=== PATIENT | female | born 1945 | race Caucasian/White ===

== ENCOUNTER 2017-08-27 10:06 | Emergency (ER) | payer OTHER ==
[2017-08-27 10:13] VITALS: BP 104/67; PULSE 115; TEMP 99.2; BMI 17.7
--- NOTE | 2017-08-27 10:52 | PDOC ---
History of Present Illness - General Chief Complaint: Cold Symptoms Stated Complaint: ABD PAIN, SWOLLEN LEGS Time Seen by Provider: 08/27/17 10:44 History Source: Patient Exam Limitations: No Limitations - History of Present Illness Initial Comments: 08/27/17 10:51 Best Contact: PCP: Leoncio name Pmhx: N/A Pshx: TVH Allergies: PCN 72-year-old female presents to the ER complaining of intermittent dry cough with subjective fever and chills but denies nausea/vomiting, facial pain, headache, dizziness, lightheadedness, nasal congestion, rhinorrhea, earaches, sore throat, difficulty swallowing, chest pain, shortness of breath, neck pain/ stiffness, back pains, abdominal pains, flank pains, urinary symptoms, extremity numbness or tingling sensation. Patient states she's been walking long distances for the past 2 days causing her feet ache. The pain is alleviated at rest. Past History - Past Medical History Allergies/Adverse Reactions: Allergies Allergy/AdvReac Type Severity Reaction Status Date / Time Penicillins Allergy Intermediate Rash Verified 08/27/17 10:07 Home Medications: Ambulatory Orders No Home Medications 0 dose .ROUTE UTDICT 07/02/13 Azithromycin [Zithromax -] 250 mg PO UTDICT #6 tab 08/27/17 Anemia: No Asthma: No Cancer: No Cardiac Disorders: No CVA: No COPD: No CHF: No Dementia: No Diabetes: No GI Disorders: Yes (gastritis) Disorders: No HTN: No Hypercholesterolemia: No Liver Disease: No Seizures: No Thyroid Disease: No - Surgical History Abdominal Surgery: No Appendectomy: No Cardiac Surgery: No Cholecystectomy: No Lung Surgery: No Neurologic Surgery: No Orthopedic Surgery: No - Suicide/Smoking/Psychosocial Hx Smoking History: Never smoked Have you smoked in the past 12 months: No Information on smoking cessation initiated: No Hx Alcohol Use: Yes (OCCASIONALLY) Drug/Substance Use Hx: No Substance Use Type: Alcohol Hx Substance Use Treatment: No Review of Systems - Review of Systems Able to Perform ROS?: Yes Comments:: 08/27/17 11:18 CONSTITUTIONAL: +Subjective fever/chills Absent: diaphoresis, generalized weakness, malaise, loss of appetite HEENT: Absent: rhinorrhea, nasal congestion, throat pain, throat swelling, difficulty swallowing, mouth swelling, ear pain, eye pain, visual Changes CARDIOVASCULAR: Absent: chest pain, loss of consciousness, palpitations, irregular heart rate, peripheral edema RESPIRATORY: +Cough Absent: shortness of breath, dyspnea with exertion, orthopnea, wheezing, stridor, hemoptysis GASTROINTESTINAL: Absent: abdominal pain, abdominal distension, nausea, vomiting, diarrhea, constipation, melena, hematochezia GENITOURINARY: Absent: dysuria, frequency, urgency, hesitancy, hematuria, flank pain, genital pain MUSCULOSKELETAL: Absent: myalgia, arthralgia, joint swelling SKIN: Absent: rash, itching, pallor HEMATOLOGIC/IMMUNOLOGIC: Absent: easy bleeding, easy bruising, lymphadenopathy, frequent infections ENDOCRINE: Absent: unexplained weight gain, unexplained weight loss, heat intolerance, cold intolerance Is the patient limited Burmese proficient: No *Physical Exam - Vital Signs Last Vital Signs Temp Pulse Resp BP Pulse Ox 99.2 F 115 H 18 104/67 100 08/27/17 10:09 08/27/17 10:09 08/27/17 10:09 08/27/17 10:09 08/27/17 10:09 - Physical Exam Comments: 08/27/17 11:19 GENERAL: Well developed, well nourished. Awake and alert. No acute distress. HEENT: Normocephalic, atraumatic. PERRLA, EOMI. No conjunctival pallor. Sclera are non- icteric. Moist mucous membranes. Oropharynx is clear. NECK: Supple. Full ROM. No JVD. Carotid pulses 2+ and symmetric, without bruits. No thyromegaly. No lymphadenopathy. CARDIOVASCULAR: Regular rate and rhythm. No murmurs, rubs, or gallops. Distal pulses are 2+ and symmetric. PULMONARY: No evidence of respiratory distress. Lungs clear to auscultation bilaterally. No wheezing, rales or rhonchi. ABDOMINAL: Soft. Non-tender. Non-distended. No rebound or guarding. No organomegaly. Normoactive bowel sounds. MUSCULOSKELETAL Normal range of motion at all joints. No bony deformities or tenderness. No CVA tenderness. EXTREMITIES: No cyanosis. No clubbing. No edema. No calf tenderness. SKIN: Warm and dry. Normal capillary refill. No rashes. No jaundice. Moderate Sedation - Procedure Monitoring Vital Signs: Vital Signs Temp Pulse Resp BP Pulse Ox 99.2 F 115 H 18 104/67 100 08/27/17 10:09 08/27/17 10:09 08/27/17 10:09 08/27/17 10:09 08/27/17 10:09 *DC/Admit/Observation/Transfer Diagnosis at time of Disposition: Acute bronchitis Qualifiers: Bronchitis organism: unspecified organism Qualified Code(s): J20.9 - Acute bronchitis, unspecified - Discharge Dispostion Disposition: HOME Condition at time of disposition: Stable Decision to Admit order: No - Prescriptions Prescriptions: Azithromycin [Zithromax -] 250 mg PO UTDICT #6 tab - Referrals Referrals: Juan Fierro MD [Staff Physician] - - Patient Instructions Printed Discharge Instructions: DI for Acute Bronchitis Additional Instructions: Rest [id number] supportive care Zithromax as prescribed Return back to the emergency department for severe/persistent or worsening symptoms - Post Discharge Activity
== END 2017-08-27 10:58 | disposition home or self-care (01) ==
LOC: JERFT 10:06
DX: J20.9 Acute bronchitis, unspecified (principal)
CPT/HCPCS: 99281-25

== ENCOUNTER 2019-11-09 05:03 | Day surgery (SDC) | payer OTHER ==
[2019-11-06 18:39] VITALS: BMI 16.1
[2019-11-09] MEDS ORDERED: CARVEDILOL 25 MG TABLET (FP) PO ONE (14:15)
[2019-11-09] MEDS ORDERED: ACETAMINOPHEN 325 MG TABLET (FP) ONE (15:07)
[2019-11-09 15:16] VITALS: TEMP 97.8
[2019-11-09 16:27] VITALS: BP 162/92; PULSE 70
== END 2019-11-09 16:28 | disposition home or self-care (01) ==
LOC: JASU-SURG 05:03
PROVIDERS: ATTEND Surgery
PROC: 03180ZF Bypass Left Brachial Artery to Lower Arm Vein, Open Approach (ICD-10-PCS; principal; 2019-11-09)
DX: N18.6 End stage renal disease (principal); Z53.09 Procedure and treatment not carried out because of other contraindication
CPT/HCPCS: 36415; 84132

== ENCOUNTER 2021-01-04 04:08 | Day surgery (SDC) | payer OTHER ==
[2021-01-03 16:31] VITALS: BMI 15.7
[2021-01-04] MEDS ORDERED: PAPAVERINE HCL 30 MG/1 ML 10 ML VIAL NR ONE (09:37)
[2021-01-04] MEDS ORDERED: HEPARIN NA (PORCINE) 5,000 UNITS/ML 1ML VIAL ONE (09:37)
[2021-01-04] MEDS ORDERED: LIDOCAINE HCL 1%, 10 MG/ML (20ML VIAL) ONE (09:47)
[2021-01-04] MEDS ORDERED: POVIDONE-IODINE OINTMENT 10% - 28.4 GM TUBE ONE (09:48)
[2021-01-04] MEDS ORDERED: MIDAZOLAM HCL 2 MG/2 ML SINGLE DOSE VIAL ONE (10:30)
[2021-01-04] MEDS ORDERED: LIDOCAINE HCL 1%, 10 MG/ML (20ML VIAL) SQ ONE (10:42)
[2021-01-04] MEDS ORDERED: ONDANSETRON 4 MG/2 ML VIAL ONE (10:43)
[2021-01-04] MEDS ORDERED: HEPARIN NA (PORCINE) 5,000 UNITS/ML 1ML VIAL SQ ONE (10:51)
[2021-01-04] MEDS ORDERED: POVIDONE-IODINE OINTMENT 10% - 28.4 GM TUBE TP ONE (11:34)
[2021-01-04] MEDS ORDERED: oxyCODONE HCL 5 MG TABLET PO PRN (11:45)
[2021-01-04] MEDS ORDERED: ONDANSETRON 4 MG/2 ML VIAL IVPUSH PRN (12:19)
[2021-01-04 13:26] VITALS: TEMP 96.4
[2021-01-04 14:18] VITALS: BP 134/67; PULSE 66
== END 2021-01-04 14:40 | disposition home or self-care (01) ==
LOC: JASU-SURG 04:08
PROVIDERS: ATTEND Surgery
PROC: 03180ZD Bypass Left Brachial Artery to Upper Arm Vein, Open Approach (ICD-10-PCS; principal; 2021-01-04 10:00)
DX: I12.0 Hypertensive chronic kidney disease with stage 5 chronic kidney disease or end stage renal disease (principal); N18.6 End stage renal disease; Z99.2 Dependence on renal dialysis
CPT/HCPCS: 36415; 84132; 94760; J1644

== ENCOUNTER 2021-03-27 04:30 | Day surgery (SDC) | payer OTHER ==
[2021-02-28 12:29] VITALS: BMI 15.7
[2021-03-27] MEDS ORDERED: LIDOCAINE HCL 1%, 10 MG/ML (20ML VIAL) ONE (10:50)
[2021-03-27] MEDS ORDERED: PAPAVERINE HCL 30 MG/1 ML 10 ML VIAL NR ONE (10:50)
[2021-03-27] MEDS ORDERED: HEPARIN NA (PORCINE) 5,000 UNITS/ML 1ML VIAL ONE (10:50)
[2021-03-27] MEDS ORDERED: POVIDONE-IODINE OINTMENT 10% - 28.4 GM TUBE ONE (11:07)
[2021-03-27] MEDS ORDERED: LIDOCAINE HCL 2% (20ML MULTI-DOSE VIAL) ONE (11:45)
[2021-03-27] MEDS ORDERED: MIDAZOLAM HCL 2 MG/2 ML SINGLE DOSE VIAL ONE ×2 (11:50)
[2021-03-27] MEDS ORDERED: LIDOCAINE HCL 1%, 10 MG/ML (20ML VIAL) NR ONE ×2 (12:40→13:30)
[2021-03-27] MEDS ORDERED: POVIDONE-IODINE OINTMENT 10% - 28.4 GM TUBE TP ONE ×2 (12:41→13:30)
[2021-03-27] MEDS ORDERED: CLINDAMYCIN 300 MG PREMIX BAG IVPB ONE (13:19)
[2021-03-27] MEDS ORDERED: KETAMINE HCL 200 MG/20 ML VIAL ONE (14:11)
[2021-03-27] MEDS ORDERED: GLYCOPYRROLATE 0.2 MG/1 ML VIAL ONE (14:11)
[2021-03-27] MEDS ORDERED: CLINDAMYCIN PHOSPHATE 600 MG/4 ML VIAL ONE (14:26)
[2021-03-27] MEDS ORDERED: ONDANSETRON 4 MG/2 ML VIAL IVPUSH PRN (14:45)
[2021-03-27 17:36] VITALS: BP 152/78; PULSE 88; TEMP 97.7
== END 2021-03-27 17:17 | disposition home or self-care (01) ==
LOC: JASU-SURG 04:30
PROVIDERS: ATTEND Surgery
PROC: 05WY03Z Revision of Infusion Device in Upper Vein, Open Approach (ICD-10-PCS; principal; 2021-03-27 11:00)
DX: I12.0 Hypertensive chronic kidney disease with stage 5 chronic kidney disease or end stage renal disease (principal); N18.6 End stage renal disease; Z99.2 Dependence on renal dialysis
CPT/HCPCS: 36415; 82962; 84132; 94760; J1644

== ENCOUNTER 2021-08-21 13:18 | Inpatient (IN) | payer OTHER ==
[2021-08-21] MEDS ORDERED: DEXAMETHASONE SOD PHOSPHATE 10 MG/1 ML VIAL IVPUSH ONE (15:14)
[2021-08-21] MEDS ORDERED: ALBUTEROL SO4 2.5/IPRATROPIUM 0.5 INH SOL 3 ML VIAL.NEB. NEB ONE ×2 (15:17→15:51)
[2021-08-21] MEDS ORDERED: DEXAMETHASONE SOD PHOSPHATE 10 MG/1 ML VIAL ONE (15:51)
[2021-08-21] MEDS ORDERED: REMDESIVIR 200 MG in SODIUM CHLORIDE 250 ML IVPB ONE (16:14)
[2021-08-21 16:44] LABS: VENOUS BASE EXCESS 5.4 mmol/L (-2-2); VENOUS O2 SATURATION 22.2 % (70-80); VENOUS PCO2 62.5 mmHg (38-52); VENOUS PH 7.345 (7.310-7.410)
[2021-08-21 16:57] LABS: BASO % 0.9 % (0-2.0); EOS % 8.9 % (0-4.5); HEMATOCRIT 44.6 % (32.4-45.2); HEMOGLOBIN 14.7 GM/dL (10.7-15.3); LYMPH % 13.5 % (8-40); MCH 33.6 pg (25.7-33.7); MEAN CELL VOLUME 101.7 fl (80-96); MONO % 5.6 % (3.8-10.2); NEUT % 71.1 % (42.8-82.8); PLATELET COUNT 220 10^3/uL (134-434); RBC 4.38 M/mm3 (3.60-5.2); RDW 15.5 % (11.6-15.6); WHITE BLOOD COUNT 9.4 K/mm3 (4.0-10.0)
[2021-08-21 17:26] LABS: CALCIUM 9.2 mg/dL (8.5-10.1)
[2021-08-21 17:27] LABS: ALBUMIN 4.1 g/dl (3.4-5.0); BLOOD UREA NITROGEN 21.6 mg/dL (7-18)
[2021-08-21 17:30] LABS: BILIRUBIN,DIRECT 0.1 mg/dL (0.0-0.2)
[2021-08-21 17:31] LABS: BILIRUBIN,TOTAL 0.5 mg/dL (0.2-1); CREATININE 5.3 mg/dL (0.55-1.3); INR 0.99 (0.83-1.09); PROTHROMBIN TIME (PATIENT) 11.4 SEC (9.7-13.0); TOT PROT 8.8 g/dl (6.4-8.2)
[2021-08-21 17:33] LABS: ACTIVATED PTT 39.2 SECONDS (25.2-36.5)
[2021-08-21] MEDS ORDERED: ALBUTEROL SO4 HFA INHALER IH PRN (21:06)
[2021-08-21] MEDS ORDERED: CARVEDILOL 12.5 MG TABLET (FP) ONE (22:54)
[2021-08-21] MEDS ORDERED: ATORVASTATIN CA 10 MG TABLET (FP) ONE (22:54)
[2021-08-21] MEDS ORDERED: HEPARIN NA (PORCINE) 5,000 UNITS/ML 1ML VIAL ONE (22:55)
[2021-08-21] MEDS ORDERED: ASCORBIC ACID 500 MG TABLET (FP) ONE (22:55)
[2021-08-21] MEDS: ASCORBIC ACID 500 MG TABLET (FP) PO SCH (23:15)
[2021-08-21] MEDS: CARVEDILOL 25 MG TABLET (FP) PO SCH (23:15)
[2021-08-21] MEDS: ATORVASTATIN CA 10 MG TABLET (FP) PO SCH (23:15)
[2021-08-21] MEDS: BUDESONIDE/FORMETEROL FUMARATE 80/4.5 mcg INHALER IH SCH (23:15)
[2021-08-21] MEDS: HEPARIN NA (PORCINE) 5,000 UNITS/ML 1ML VIAL SQ SCH (23:15)
[2021-08-22] MEDS ORDERED: HEPARIN NA (PORCINE) 5,000 UNITS/ML 1ML VIAL ONE ×2 (06:09→14:38)
[2021-08-22] MEDS: HEPARIN NA (PORCINE) 5,000 UNITS/ML 1ML VIAL SQ SCH ×3 (06:16→22:30)
[2021-08-22 07:34] LABS: BASO % 0.4 % (0-2.0); EOS % 0.1 % (0-4.5); HEMOGLOBIN 12.2 GM/dL (10.7-15.3); LYMPH % 19.5 % (8-40); MCH 32.8 pg (25.7-33.7); MEAN CELL VOLUME 102.6 fl (80-96); MEAN PLT VOLUME 8.4 fl (7.5-11.1); MONO % 7.8 % (3.8-10.2); NEUT % 72.2 % (42.8-82.8); PLATELET COUNT 190 10^3/uL (134-434); RBC 3.71 M/mm3 (3.60-5.2); RDW 15.1 % (11.6-15.6); WHITE BLOOD COUNT 6.6 K/mm3 (4.0-10.0)
[2021-08-22 09:19] LABS: CALCIUM 7.9 mg/dL (8.5-10.1)
[2021-08-22 09:21] LABS: BLOOD UREA NITROGEN 41.2 mg/dL (7-18); MAGNESIUM 2.5 mg/dL (1.8-2.4)
[2021-08-22 09:24] LABS: CREATININE 7.3 mg/dL (0.55-1.3)
[2021-08-22 09:25] LABS: BILIRUBIN,TOTAL 0.3 mg/dL (0.2-1)
[2021-08-22] MEDS ORDERED: CARVEDILOL 12.5 MG TABLET (FP) ONE (09:32)
[2021-08-22] MEDS ORDERED: ZINC SULFATE 220 MG CAPSULE (FP) ONE (09:32)
[2021-08-22] MEDS ORDERED: amLODIPine BESYLATE 5 MG TABLET (FP) ONE (09:32)
[2021-08-22] MEDS ORDERED: CHOLECALCIFEROL (VIT D3) 1,000 UNIT (25 MCG) TABLET ONE (09:33)
[2021-08-22] MEDS ORDERED: ASCORBIC ACID 500 MG TABLET (FP) ONE (09:33)
[2021-08-22] MEDS ORDERED: MULTIVITAMINS (DAILY MVI) TABLET (FP) ONE (09:33)
[2021-08-22] MEDS ORDERED: DEXAMETHASONE SOD PHOSPHATE 10 MG/1 ML VIAL ONE (09:33)
[2021-08-22 09:34] LABS: ALBUMIN 3.2 g/dl (3.4-5.0)
[2021-08-22] MEDS: CHOLECALCIFEROL (VIT D3) 5000 UNITS (125 MCG) CAP PO SCH (10:00)
[2021-08-22] MEDS: amLODIPine BESYLATE 5 MG TABLET (FP) PO SCH (10:00)
[2021-08-22] MEDS: DEXAMETHASONE SOD PHOSPHATE 10 MG/1 ML VIAL IVPUSH SCH (10:00)
[2021-08-22] MEDS: BUDESONIDE/FORMETEROL FUMARATE 80/4.5 mcg INHALER IH SCH ×2 (10:00→22:30)
[2021-08-22] MEDS: CARVEDILOL 25 MG TABLET (FP) PO SCH ×2 (10:00→22:30)
[2021-08-22] MEDS: ZINC SULFATE 220 MG CAPSULE (FP) PO SCH (10:00)
[2021-08-22] MEDS: MULTIVITAMINS (DAILY MVI) TABLET (FP) PO SCH (10:00)
[2021-08-22] MEDS ORDERED: ZINC SULFATE 220 MG CAPSULE (FP) PO SCH (10:00)
[2021-08-22] MEDS: ASCORBIC ACID 500 MG TABLET (FP) PO SCH ×2 (10:00→22:30)
[2021-08-22] MEDS ORDERED: REMDESIVIR 200 MG in SODIUM CHLORIDE 250 ML IVPB ONE (14:00)
[2021-08-22] MEDS ORDERED: ALBUTEROL SO4 HFA INHALER IH ONE (14:38)
[2021-08-22] MEDS ORDERED: SODIUM CHLORIDE 250 ML IV PRN (14:43)
[2021-08-22] MEDS: ALBUTEROL SO4 HFA INHALER IH SCH ×3 (14:50→22:29)
[2021-08-22] MEDS: ATORVASTATIN CA 10 MG TABLET (FP) PO SCH (22:30)
[2021-08-23] MEDS: HEPARIN NA (PORCINE) 5,000 UNITS/ML 1ML VIAL SQ SCH ×3 (05:49→21:44)
[2021-08-23 08:42] LABS: BASO % 0.1 % (0-2.0); HEMATOCRIT 35.8 % (32.4-45.2); HEMOGLOBIN 11.7 GM/dL (10.7-15.3); LYMPH % 11.5 % (8-40); MCH 33.3 pg (25.7-33.7); MCHC 32.7 g/dl (32.0-36.0); MEAN CELL VOLUME 101.9 fl (80-96); MEAN PLT VOLUME 8.4 fl (7.5-11.1); MONO % 8.2 % (3.8-10.2); NEUT % 80.2 % (42.8-82.8); PLATELET COUNT 195 10^3/uL (134-434); RBC 3.51 M/mm3 (3.60-5.2); RDW 15.3 % (11.6-15.6); WHITE BLOOD COUNT 9.3 K/mm3 (4.0-10.0)
[2021-08-23 09:05] LABS: CHLORIDE 98 mmol/L (98-107); SODIUM 138 mmol/L (136-145)
[2021-08-23 09:13] LABS: ALBUMIN 3.3 g/dl (3.4-5.0); ANION GAP 14 MMOL/L (8-16); CO2 26 mmol/L (21-32); GLUCOSE,RANDOM 157 mg/dL (74-106); MAGNESIUM 2.6 mg/dL (1.8-2.4)
[2021-08-23 09:16] LABS: PHOSPHOROUS 7.8 mg/dL (2.5-4.9); SGOT/AST 18 U/L (15-37); SGPT/ALT 21 U/L (13-61)
[2021-08-23 09:18] LABS: BILIRUBIN,TOTAL 0.5 mg/dL (0.2-1); TOT PROT 6.8 g/dl (6.4-8.2)
[2021-08-23 09:19] LABS: ALK PHOS 48 U/L (45-117); LDH 175 U/L (84-246)
[2021-08-23 10:52] LABS: BLOOD UREA NITROGEN 72.3 mg/dL (7-18); CREATININE 9.2 mg/dL (0.55-1.3)
[2021-08-23] MEDS: amLODIPine BESYLATE 5 MG TABLET (FP) PO SCH (13:22)
[2021-08-23] MEDS: CARVEDILOL 25 MG TABLET (FP) PO SCH ×2 (13:23→21:44)
[2021-08-23] MEDS: ZINC SULFATE 220 MG CAPSULE (FP) PO SCH (13:24)
[2021-08-23] MEDS: DEXAMETHASONE SOD PHOSPHATE 10 MG/1 ML VIAL IVPUSH SCH (13:24)
[2021-08-23] MEDS: ASCORBIC ACID 500 MG TABLET (FP) PO SCH ×2 (13:24→21:45)
[2021-08-23] MEDS: ALBUTEROL SO4 HFA INHALER IH SCH ×4 (13:26→21:45)
[2021-08-23] MEDS: MULTIVITAMINS (DAILY MVI) TABLET (FP) PO SCH (13:26)
[2021-08-23] MEDS: BUDESONIDE/FORMETEROL FUMARATE 80/4.5 mcg INHALER IH SCH ×2 (13:26→21:45)
[2021-08-23] MEDS: CHOLECALCIFEROL (VIT D3) 5000 UNITS (125 MCG) CAP PO SCH (13:26)
[2021-08-23] MEDS: REMDESIVIR 100 MG in SODIUM CHLORIDE 250 ML IVPB SCH ×2 (15:54→16:04)
[2021-08-23] MEDS: ATORVASTATIN CA 10 MG TABLET (FP) PO SCH (21:45)
[2021-08-24] MEDS: HEPARIN NA (PORCINE) 5,000 UNITS/ML 1ML VIAL SQ SCH ×3 (05:34→21:26)
[2021-08-24 09:22] LABS: BASO % 0.2 % (0-2.0); HEMATOCRIT 39.8 % (32.4-45.2); HEMOGLOBIN 12.9 GM/dL (10.7-15.3); LYMPH % 15.6 % (8-40); MCH 33.2 pg (25.7-33.7); MCHC 32.4 g/dl (32.0-36.0); MEAN CELL VOLUME 102.4 fl (80-96); MEAN PLT VOLUME 8.1 fl (7.5-11.1); NEUT % 75.2 % (42.8-82.8); PLATELET COUNT 211 10^3/uL (134-434); RBC 3.89 M/mm3 (3.60-5.2); RDW 15.2 % (11.6-15.6); WHITE BLOOD COUNT 10.6 K/mm3 (4.0-10.0)
[2021-08-24 09:51] LABS: CALCIUM 8.1 mg/dL (8.5-10.1)
[2021-08-24 09:52] LABS: ALBUMIN 3.4 g/dl (3.4-5.0); BLOOD UREA NITROGEN 58.2 mg/dL (7-18); MAGNESIUM 2.5 mg/dL (1.8-2.4)
[2021-08-24 09:54] LABS: BILIRUBIN,TOTAL 0.3 mg/dL (0.2-1)
[2021-08-24 09:55] LABS: CREATININE 6.3 mg/dL (0.55-1.3); PHOSPHOROUS 6.4 mg/dL (2.5-4.9)
[2021-08-24] MEDS: ASCORBIC ACID 500 MG TABLET (FP) PO SCH ×2 (10:15→21:26)
[2021-08-24] MEDS: amLODIPine BESYLATE 5 MG TABLET (FP) PO SCH (10:15)
[2021-08-24] MEDS: CARVEDILOL 25 MG TABLET (FP) PO SCH ×2 (10:15→21:25)
[2021-08-24] MEDS: ZINC SULFATE 220 MG CAPSULE (FP) PO SCH (10:15)
[2021-08-24] MEDS: MULTIVITAMINS (DAILY MVI) TABLET (FP) PO SCH (10:16)
[2021-08-24] MEDS: DEXAMETHASONE SOD PHOSPHATE 10 MG/1 ML VIAL IVPUSH SCH (10:16)
[2021-08-24] MEDS: ALBUTEROL SO4 HFA INHALER IH SCH ×4 (10:18→21:26)
[2021-08-24] MEDS: BUDESONIDE/FORMETEROL FUMARATE 80/4.5 mcg INHALER IH SCH ×2 (10:18→21:26)
[2021-08-24] MEDS: CHOLECALCIFEROL (VIT D3) 5000 UNITS (125 MCG) CAP PO SCH (10:20)
[2021-08-24] MEDS: REMDESIVIR 100 MG in SODIUM CHLORIDE 250 ML IVPB SCH ×2 (13:41→13:46)
[2021-08-24] MEDS ORDERED: SODIUM CHLORIDE 250 ML IV PRN (15:23)
[2021-08-24] MEDS: CALCIUM ACETATE 667 MG CAPSULE (FP) PO SCH (17:29)
[2021-08-24] MEDS: DOXYCYCLINE HYCLATE 100 MG CAPSULE PO SCH (17:29)
[2021-08-24] MEDS: ATORVASTATIN CA 10 MG TABLET (FP) PO SCH (21:26)
[2021-08-25] MEDS: HEPARIN NA (PORCINE) 5,000 UNITS/ML 1ML VIAL SQ SCH ×3 (05:47→22:29)
[2021-08-25] MEDS: AMINO ACIDS/PROTEIN HYDROLYS 30 ML LIQUID.PKT PO SCH (08:45)
[2021-08-25] MEDS: CALCIUM ACETATE 667 MG CAPSULE (FP) PO SCH ×3 (08:45→17:13)
[2021-08-25 09:17] LABS: BASO % 0.3 % (0-2.0); EOS % 0.1 % (0-4.5); HEMOGLOBIN 12.4 GM/dL (10.7-15.3); LYMPH % 11.4 % (8-40); MCH 32.4 pg (25.7-33.7); MCHC 31.8 g/dl (32.0-36.0); MEAN PLT VOLUME 8.3 fl (7.5-11.1); MONO % 9.5 % (3.8-10.2); NEUT % 78.7 % (42.8-82.8); PLATELET COUNT 221 10^3/uL (134-434); RBC 3.82 M/mm3 (3.60-5.2); RDW 15.2 % (11.6-15.6); WHITE BLOOD COUNT 15.1 K/mm3 (4.0-10.0)
[2021-08-25] MEDS: CARVEDILOL 25 MG TABLET (FP) PO SCH ×2 (10:00→22:44)
[2021-08-25] MEDS: amLODIPine BESYLATE 5 MG TABLET (FP) PO SCH (10:01)
[2021-08-25 10:25] LABS: ALBUMIN 3.4 g/dl (3.4-5.0); ALK PHOS 41 U/L (45-117); ANION GAP 17 MMOL/L (8-16); BILIRUBIN,TOTAL 0.3 mg/dL (0.2-1); BLOOD UREA NITROGEN 109.9 mg/dL (7-18); CALCIUM 8.1 mg/dL (8.5-10.1); CHLORIDE 100 mmol/L (98-107); CO2 26 mmol/L (21-32); CREATININE 9.4 mg/dL (0.55-1.3); GLUCOSE,RANDOM 79 mg/dL (74-106); MAGNESIUM 2.6 mg/dL (1.8-2.4); PHOSPHOROUS 6.5 mg/dL (2.5-4.9); SGOT/AST 17 U/L (15-37); SGPT/ALT 20 U/L (13-61); SODIUM 143 mmol/L (136-145); TOT PROT 6.8 g/dl (6.4-8.2)
[2021-08-25] MEDS: ASCORBIC ACID 500 MG TABLET (FP) PO SCH ×2 (10:43→22:29)
[2021-08-25] MEDS: DOXYCYCLINE HYCLATE 100 MG CAPSULE PO SCH ×2 (10:43→17:14)
[2021-08-25] MEDS: MULTIVITAMINS (DAILY MVI) TABLET (FP) PO SCH (10:44)
[2021-08-25] MEDS: CHOLECALCIFEROL (VIT D3) 5000 UNITS (125 MCG) CAP PO SCH (10:44)
[2021-08-25] MEDS: DEXAMETHASONE SOD PHOSPHATE 10 MG/1 ML VIAL IVPUSH SCH (10:44)
[2021-08-25] MEDS: BUDESONIDE/FORMETEROL FUMARATE 80/4.5 mcg INHALER IH SCH ×2 (10:45→22:29)
[2021-08-25] MEDS: ALBUTEROL SO4 HFA INHALER IH SCH ×4 (10:45→22:30)
[2021-08-25] MEDS: REMDESIVIR 100 MG in SODIUM CHLORIDE 250 ML IVPB SCH (14:01)
[2021-08-25] MEDS: ATORVASTATIN CA 10 MG TABLET (FP) PO SCH (22:29)
[2021-08-26] MEDS: HEPARIN NA (PORCINE) 5,000 UNITS/ML 1ML VIAL SQ SCH ×3 (07:00→22:24)
[2021-08-26 09:43] LABS: BASO % 0.3 % (0-2.0); EOS % 0.3 % (0-4.5); HEMATOCRIT 36.7 % (32.4-45.2); LYMPH % 13.4 % (8-40); MCH 32.8 pg (25.7-33.7); MCHC 32.5 g/dl (32.0-36.0); MEAN CELL VOLUME 100.9 fl (80-96); MEAN PLT VOLUME 7.9 fl (7.5-11.1); MONO % 9.7 % (3.8-10.2); NEUT % 76.3 % (42.8-82.8); PLATELET COUNT 199 10^3/uL (134-434); RBC 3.64 M/mm3 (3.60-5.2); RDW 15.7 % (11.6-15.6); WHITE BLOOD COUNT 12.5 K/mm3 (4.0-10.0)
[2021-08-26] MEDS: DEXAMETHASONE SOD PHOSPHATE 10 MG/1 ML VIAL IVPUSH SCH (10:50)
[2021-08-26] MEDS: CHOLECALCIFEROL (VIT D3) 5000 UNITS (125 MCG) CAP PO SCH (10:50)
[2021-08-26] MEDS: CALCIUM ACETATE 667 MG CAPSULE (FP) PO SCH ×3 (10:51→17:53)
[2021-08-26] MEDS: ASCORBIC ACID 500 MG TABLET (FP) PO SCH ×2 (10:51→22:28)
[2021-08-26] MEDS: MULTIVITAMINS (DAILY MVI) TABLET (FP) PO SCH (10:51)
[2021-08-26] MEDS: DOXYCYCLINE HYCLATE 100 MG CAPSULE PO SCH ×2 (10:51→17:53)
[2021-08-26] MEDS: AMINO ACIDS/PROTEIN HYDROLYS 30 ML LIQUID.PKT PO SCH (10:51)
[2021-08-26] MEDS: amLODIPine BESYLATE 5 MG TABLET (FP) PO SCH (10:51)
[2021-08-26] MEDS: BUDESONIDE/FORMETEROL FUMARATE 80/4.5 mcg INHALER IH SCH ×2 (10:51→22:24)
[2021-08-26] MEDS: ALBUTEROL SO4 HFA INHALER IH SCH ×4 (10:51→22:24)
[2021-08-26] MEDS: CARVEDILOL 25 MG TABLET (FP) PO SCH ×2 (10:51→22:23)
[2021-08-26 10:58] LABS: CALCIUM 8.1 mg/dL (8.5-10.1)
[2021-08-26 10:59] LABS: MAGNESIUM 2.2 mg/dL (1.8-2.4)
[2021-08-26 11:02] LABS: CREATININE 6.5 mg/dL (0.55-1.3); PHOSPHOROUS 5.7 mg/dL (2.5-4.9)
[2021-08-26 11:03] LABS: BILIRUBIN,TOTAL 0.3 mg/dL (0.2-1)
[2021-08-26 11:05] LABS: TOT PROT 6.2 g/dl (6.4-8.2)
[2021-08-26 11:06] LABS: BLOOD UREA NITROGEN 69.7 mg/dL (7-18)
[2021-08-26] MEDS: REMDESIVIR 100 MG in SODIUM CHLORIDE 250 ML IVPB SCH (15:25)
[2021-08-26] MEDS: ATORVASTATIN CA 10 MG TABLET (FP) PO SCH (22:24)
[2021-08-26] MEDS: POLYETHYLENE GLYCOL (HEALTHYLAX) 3350 17 GM PACKET PO SCH (22:28)
[2021-08-27] MEDS: HEPARIN NA (PORCINE) 5,000 UNITS/ML 1ML VIAL SQ SCH ×3 (06:09→21:36)
[2021-08-27] MEDS: CALCIUM ACETATE 667 MG CAPSULE (FP) PO SCH ×3 (08:38→17:23)
[2021-08-27] MEDS: AMINO ACIDS/PROTEIN HYDROLYS 30 ML LIQUID.PKT PO SCH (08:39)
[2021-08-27 08:55] LABS: BASO % 0.3 % (0-2.0); HEMOGLOBIN 13.1 GM/dL (10.7-15.3); LYMPH % 11.1 % (8-40); MCH 32.8 pg (25.7-33.7); MEAN CELL VOLUME 102.4 fl (80-96); MEAN PLT VOLUME 8.4 fl (7.5-11.1); MONO % 6.3 % (3.8-10.2); NEUT % 82.3 % (42.8-82.8); PLATELET COUNT 245 10^3/uL (134-434); WHITE BLOOD COUNT 10.5 K/mm3 (4.0-10.0)
[2021-08-27] MEDS: CARVEDILOL 25 MG TABLET (FP) PO SCH ×2 (09:32→21:35)
[2021-08-27] MEDS: POLYETHYLENE GLYCOL (HEALTHYLAX) 3350 17 GM PACKET PO SCH (09:33)
[2021-08-27] MEDS: CHOLECALCIFEROL (VIT D3) 5000 UNITS (125 MCG) CAP PO SCH (09:33)
[2021-08-27] MEDS: DOXYCYCLINE HYCLATE 100 MG CAPSULE PO SCH ×2 (09:33→17:24)
[2021-08-27] MEDS: amLODIPine BESYLATE 5 MG TABLET (FP) PO SCH (09:33)
[2021-08-27] MEDS: MULTIVITAMINS (DAILY MVI) TABLET (FP) PO SCH (09:33)
[2021-08-27] MEDS: DEXAMETHASONE SOD PHOSPHATE 10 MG/1 ML VIAL IVPUSH SCH (09:33)
[2021-08-27] MEDS: ASCORBIC ACID 500 MG TABLET (FP) PO SCH ×2 (09:33→21:35)
[2021-08-27] MEDS: ALBUTEROL SO4 HFA INHALER IH SCH ×4 (09:35→21:36)
[2021-08-27] MEDS: BUDESONIDE/FORMETEROL FUMARATE 80/4.5 mcg INHALER IH SCH ×2 (09:35→21:36)
[2021-08-27 10:10] LABS: ALBUMIN 3.4 g/dl (3.4-5.0); ALK PHOS 37 U/L (45-117); ANION GAP 17 MMOL/L (8-16); BILIRUBIN,TOTAL 0.3 mg/dL (0.2-1); BLOOD UREA NITROGEN 119.1 mg/dL (7-18); CALCIUM 9.1 mg/dL (8.5-10.1); CHLORIDE 95 mmol/L (98-107); CO2 27 mmol/L (21-32); CREATININE 9.4 mg/dL (0.55-1.3); GLUCOSE,RANDOM 110 mg/dL (74-106); MAGNESIUM 2.5 mg/dL (1.8-2.4); PHOSPHOROUS 5.9 mg/dL (2.5-4.9); SGOT/AST 14 U/L (15-37); SGPT/ALT 19 U/L (13-61); SODIUM 139 mmol/L (136-145); TOT PROT 7.1 g/dl (6.4-8.2)
[2021-08-27] MEDS ORDERED: SODIUM CHLORIDE 250 ML IV PRN (14:22)
[2021-08-27] MEDS: ATORVASTATIN CA 10 MG TABLET (FP) PO SCH (21:35)
[2021-08-28] MEDS: HEPARIN NA (PORCINE) 5,000 UNITS/ML 1ML VIAL SQ SCH ×3 (05:52→21:36)
[2021-08-28] MEDS: CALCIUM ACETATE 667 MG CAPSULE (FP) PO SCH ×3 (09:10→17:40)
[2021-08-28] MEDS: CARVEDILOL 25 MG TABLET (FP) PO SCH ×3 (09:11→21:35)
[2021-08-28] MEDS: amLODIPine BESYLATE 5 MG TABLET (FP) PO SCH ×2 (09:11→10:00)
[2021-08-28] MEDS: AMINO ACIDS/PROTEIN HYDROLYS 30 ML LIQUID.PKT PO SCH (09:11)
[2021-08-28 09:27] LABS: BASO % 0.2 % (0-2.0); EOS % 0.1 % (0-4.5); HEMATOCRIT 36.7 % (32.4-45.2); HEMOGLOBIN 12.2 GM/dL (10.7-15.3); LYMPH % 12.2 % (8-40); MCH 33.2 pg (25.7-33.7); MCHC 33.1 g/dl (32.0-36.0); MEAN CELL VOLUME 100.2 fl (80-96); MEAN PLT VOLUME 8.6 fl (7.5-11.1); MONO % 7.7 % (3.8-10.2); NEUT % 79.8 % (42.8-82.8); PLATELET COUNT 245 10^3/uL (134-434); RBC 3.67 M/mm3 (3.60-5.2); RDW 15.2 % (11.6-15.6); WHITE BLOOD COUNT 11.8 K/mm3 (4.0-10.0)
[2021-08-28 09:53] LABS: CHLORIDE 93 mmol/L (98-107); SODIUM 136 mmol/L (136-145)
[2021-08-28 10:02] LABS: ALBUMIN 3.2 g/dl (3.4-5.0); GLUCOSE,RANDOM 110 mg/dL (74-106); SGOT/AST 13 U/L (15-37)
[2021-08-28 10:03] LABS: BILIRUBIN,TOTAL 0.3 mg/dL (0.2-1); TOT PROT 6.4 g/dl (6.4-8.2)
[2021-08-28 10:04] LABS: ALK PHOS 49 U/L (45-117); SGPT/ALT 18 U/L (13-61)
[2021-08-28 10:05] LABS: ANION GAP 19 MMOL/L (8-16); CALCIUM 9.1 mg/dL (8.5-10.1); CO2 23 mmol/L (21-32)
[2021-08-28 10:06] LABS: MAGNESIUM 2.8 mg/dL (1.8-2.4)
[2021-08-28 10:53] LABS: BLOOD UREA NITROGEN 163.9 mg/dL (7-18); CREATININE 11.5 mg/dL (0.55-1.3)
[2021-08-28] MEDS: DOXYCYCLINE HYCLATE 100 MG CAPSULE PO SCH ×2 (11:16→17:40)
[2021-08-28] MEDS: CHOLECALCIFEROL (VIT D3) 5000 UNITS (125 MCG) CAP PO SCH (11:16)
[2021-08-28] MEDS: MULTIVITAMINS (DAILY MVI) TABLET (FP) PO SCH (11:16)
[2021-08-28] MEDS: DEXAMETHASONE SOD PHOSPHATE 10 MG/1 ML VIAL IVPUSH SCH (11:17)
[2021-08-28] MEDS: ASCORBIC ACID 500 MG TABLET (FP) PO SCH ×2 (11:17→21:35)
[2021-08-28] MEDS: POLYETHYLENE GLYCOL (HEALTHYLAX) 3350 17 GM PACKET PO SCH (11:20)
[2021-08-28] MEDS: BUDESONIDE/FORMETEROL FUMARATE 80/4.5 mcg INHALER IH SCH ×2 (11:25→21:36)
[2021-08-28] MEDS: ALBUTEROL SO4 HFA INHALER IH SCH ×4 (11:25→21:37)
[2021-08-28] MEDS ORDERED: DEXAMETHASONE SOD PHOSPHATE 10 MG/1 ML VIAL PO SCH (12:16)
[2021-08-28 12:40] VITALS: BMI 14.8
[2021-08-28] MEDS: ATORVASTATIN CA 10 MG TABLET (FP) PO SCH (21:35)
[2021-08-29] MEDS: HEPARIN NA (PORCINE) 5,000 UNITS/ML 1ML VIAL SQ SCH ×3 (06:11→21:43)
[2021-08-29 09:47] LABS: BASO % 0.1 % (0-2.0); EOS % 0.2 % (0-4.5); HEMOGLOBIN 12.7 GM/dL (10.7-15.3); LYMPH % 15.7 % (8-40); MCH 33.8 pg (25.7-33.7); MCHC 33.4 g/dl (32.0-36.0); MEAN CELL VOLUME 101.3 fl (80-96); MEAN PLT VOLUME 8.3 fl (7.5-11.1); MONO % 9.4 % (3.8-10.2); NEUT % 74.6 % (42.8-82.8); PLATELET COUNT 242 10^3/uL (134-434); RBC 3.75 M/mm3 (3.60-5.2); RDW 15.6 % (11.6-15.6); WHITE BLOOD COUNT 8.5 K/mm3 (4.0-10.0)
[2021-08-29 10:07] LABS: CALCIUM 8.6 mg/dL (8.5-10.1); MAGNESIUM 2.5 mg/dL (1.8-2.4)
[2021-08-29 10:10] LABS: PHOSPHOROUS 6.2 mg/dL (2.5-4.9)
[2021-08-29 10:11] LABS: BLOOD UREA NITROGEN 89.3 mg/dL (7-18); CREATININE 7.2 mg/dL (0.55-1.3)
[2021-08-29] MEDS: POLYETHYLENE GLYCOL (HEALTHYLAX) 3350 17 GM PACKET PO SCH (11:24)
[2021-08-29] MEDS: amLODIPine BESYLATE 5 MG TABLET (FP) PO SCH (11:26)
[2021-08-29] MEDS: MULTIVITAMINS (DAILY MVI) TABLET (FP) PO SCH (11:26)
[2021-08-29] MEDS: CHOLECALCIFEROL (VIT D3) 5000 UNITS (125 MCG) CAP PO SCH (11:26)
[2021-08-29] MEDS: CALCIUM ACETATE 667 MG CAPSULE (FP) PO SCH ×2 (11:26→17:52)
[2021-08-29] MEDS: ASCORBIC ACID 500 MG TABLET (FP) PO SCH ×2 (11:26→21:43)
[2021-08-29] MEDS: DOXYCYCLINE HYCLATE 100 MG CAPSULE PO SCH (11:26)
[2021-08-29] MEDS: ALBUTEROL SO4 HFA INHALER IH SCH ×4 (11:27→21:44)
[2021-08-29] MEDS: CARVEDILOL 25 MG TABLET (FP) PO SCH ×2 (11:27→21:43)
[2021-08-29] MEDS: AMINO ACIDS/PROTEIN HYDROLYS 30 ML LIQUID.PKT PO SCH (11:27)
[2021-08-29] MEDS: BUDESONIDE/FORMETEROL FUMARATE 80/4.5 mcg INHALER IH SCH ×2 (11:28→21:43)
[2021-08-29] MEDS ORDERED: SODIUM CHLORIDE 250 ML IV PRN (16:30)
[2021-08-29] MEDS: ATORVASTATIN CA 10 MG TABLET (FP) PO SCH (21:43)
[2021-08-30] MEDS: HEPARIN NA (PORCINE) 5,000 UNITS/ML 1ML VIAL SQ SCH ×4 (06:29→23:17)
[2021-08-30] MEDS: AMINO ACIDS/PROTEIN HYDROLYS 30 ML LIQUID.PKT PO SCH (10:02)
[2021-08-30] MEDS: CALCIUM ACETATE 667 MG CAPSULE (FP) PO SCH ×3 (10:02→17:22)
[2021-08-30] MEDS: CHOLECALCIFEROL (VIT D3) 5000 UNITS (125 MCG) CAP PO SCH (11:54)
[2021-08-30] MEDS: CARVEDILOL 25 MG TABLET (FP) PO SCH ×2 (11:55→23:17)
[2021-08-30] MEDS: amLODIPine BESYLATE 5 MG TABLET (FP) PO SCH (11:55)
[2021-08-30] MEDS: ASCORBIC ACID 500 MG TABLET (FP) PO SCH ×2 (11:55→23:17)
[2021-08-30] MEDS: MULTIVITAMINS (DAILY MVI) TABLET (FP) PO SCH (11:55)
[2021-08-30] MEDS: POLYETHYLENE GLYCOL (HEALTHYLAX) 3350 17 GM PACKET PO SCH (11:56)
[2021-08-30] MEDS: DEXAMETHASONE 4 MG TABLET (FP) PO SCH (11:56)
[2021-08-30] MEDS: ALBUTEROL SO4 HFA INHALER IH SCH ×4 (11:57→23:19)
[2021-08-30] MEDS: BUDESONIDE/FORMETEROL FUMARATE 80/4.5 mcg INHALER IH SCH ×2 (11:59→23:18)
[2021-08-30] MEDS: ATORVASTATIN CA 10 MG TABLET (FP) PO SCH (23:18)
[2021-08-31] MEDS: HEPARIN NA (PORCINE) 5,000 UNITS/ML 1ML VIAL SQ SCH ×3 (06:22→14:12)
[2021-08-31] MEDS: CALCIUM ACETATE 667 MG CAPSULE (FP) PO SCH ×2 (08:56→12:53)
[2021-08-31] MEDS: AMINO ACIDS/PROTEIN HYDROLYS 30 ML LIQUID.PKT PO SCH (08:57)
[2021-08-31 09:27] LABS: HEMATOCRIT 37.3 % (32.4-45.2); HEMOGLOBIN 12.3 GM/dL (10.7-15.3); MCH 33.4 pg (25.7-33.7); MCHC 33.1 g/dl (32.0-36.0); MEAN CELL VOLUME 100.9 fl (80-96); MEAN PLT VOLUME 8.1 fl (7.5-11.1); PLATELET COUNT 239 10^3/uL (134-434); RBC 3.69 M/mm3 (3.60-5.2); RDW 15.4 % (11.6-15.6); WHITE BLOOD COUNT 8.7 K/mm3 (4.0-10.0)
[2021-08-31 10:05] LABS: BLOOD UREA NITROGEN 78.6 mg/dL (7-18); MAGNESIUM 2.4 mg/dL (1.8-2.4)
[2021-08-31 10:06] LABS: CALCIUM 8.3 mg/dL (8.5-10.1)
[2021-08-31 10:08] LABS: CREATININE 6.8 mg/dL (0.55-1.3)
[2021-08-31] MEDS: amLODIPine BESYLATE 5 MG TABLET (FP) PO SCH (10:56)
[2021-08-31] MEDS: ASCORBIC ACID 500 MG TABLET (FP) PO SCH (10:56)
[2021-08-31] MEDS: MULTIVITAMINS (DAILY MVI) TABLET (FP) PO SCH (10:56)
[2021-08-31] MEDS: CARVEDILOL 25 MG TABLET (FP) PO SCH (10:56)
[2021-08-31] MEDS: DEXAMETHASONE 4 MG TABLET (FP) PO SCH (10:57)
[2021-08-31] MEDS: POLYETHYLENE GLYCOL (HEALTHYLAX) 3350 17 GM PACKET PO SCH (10:57)
[2021-08-31] MEDS: BUDESONIDE/FORMETEROL FUMARATE 80/4.5 mcg INHALER IH SCH (10:58)
[2021-08-31] MEDS: ALBUTEROL SO4 HFA INHALER IH SCH ×2 (10:58→16:01)
[2021-08-31] MEDS: CHOLECALCIFEROL (VIT D3) 5000 UNITS (125 MCG) CAP PO SCH (11:33)
[2021-08-31] MEDS ORDERED: SODIUM CHLORIDE 250 ML IV PRN (13:39)
[2021-08-31 15:20] VITALS: BP 136/69; PULSE 79; TEMP 98
== END 2021-08-31 17:24 | disposition home or self-care (01) | DRG 177 ==
LOC: JER 13:18 → JERBED 15:17 → OBSVTOIN 08-22 13:05 → J5S 08-22 18:23
PROVIDERS: ADMIT Hospitalist; ATTEND Internal Medicine
PROC: XW033E5 Introduction of Remdesivir Anti-infective into Peripheral Vein, Percutaneous Approach, New Technology Group 5 (ICD-10-PCS; principal; 2021-08-21)
PROC: 3E0333Z Introduction of Anti-inflammatory into Peripheral Vein, Percutaneous Approach (ICD-10-PCS; 2021-08-21)
PROC: 5A1D70Z Performance of Urinary Filtration, Intermittent, Less than 6 Hours Per Day (ICD-10-PCS; 2021-08-25)
PROC: 5A1D70Z Performance of Urinary Filtration, Intermittent, Less than 6 Hours Per Day (ICD-10-PCS; 2021-08-28)
PROC: 5A1D70Z Performance of Urinary Filtration, Intermittent, Less than 6 Hours Per Day (ICD-10-PCS; 2021-08-30)
DX: U07.1 COVID-19 (principal); J12.82 Pneumonia due to coronavirus disease 2019; N18.6 End stage renal disease; I12.0 Hypertensive chronic kidney disease with stage 5 chronic kidney disease or end stage renal disease; R64 Cachexia; Z68.1 Body mass index [BMI] 19.9 or less, adult; J44.1 Chronic obstructive pulmonary disease with (acute) exacerbation; E78.5 Hyperlipidemia, unspecified; R09.02 Hypoxemia; Z99.2 Dependence on renal dialysis
CPT/HCPCS: 0241U-QW; 36415; 71045-TC-FY; 71250-TC; 80048; 80053; 82248; 82728; 82803; 83615; 83735; 84100; 84484; 85025; 85027; 85379; 85610; 85730; 86140; 86803; 87040; 87340; 93005; 93010; 94761; 97116-GP; 97162-GP; 99285-25; C9399; C9803-CS; G0378; J1100; J1644; U0003; U0005